=== PATIENT | female | born 2000 | race Caucasian/White ===

== ENCOUNTER 2018-09-09 08:45 | Emergency (ER) | payer SELFPAY ==
--- NOTE | 2018-09-09 09:56 | RAD ---
1 view chest: CLINICAL HISTORY: Syncope, dyspnea COMPARISON: None FINDINGS: There is no focal consolidation, effusion, or pneumothorax. Cardiac silhouette is normal in size. No acute osseous abnormality. IMPRESSION: No focal consolidation.
[2018-09-09] MEDS ORDERED: Ketorolac Tromethamine 30 MG/ML VIAL ONE (10:04)
[2018-09-09] MEDS ORDERED: Cyclobenzaprine 10 MG TAB ONE (10:43)
== END 2018-09-09 17:20 | disposition home or self-care (01) ==
LOC: ERS 08:45
DX: S20.219A Contusion of unspecified front wall of thorax, initial encounter (principal); R06.4 Hyperventilation; R55 Syncope and collapse; W20.8XXA Other cause of strike by thrown, projected or falling object, initial encounter
CPT/HCPCS: 71045; 93005; 96372; J1885

== ENCOUNTER 2020-02-01 17:33 | Emergency (ER) | payer SELFPAY ==
[2020-02-01] MEDS ORDERED: Dexamethasone 4 MG TAB ONE (18:34)
== END 2020-02-01 18:43 | disposition home or self-care (01) ==
LOC: ERS 17:33
DX: J36 Peritonsillar abscess (principal)
CPT/HCPCS: 99283; J8540